=== PATIENT | male | born 1950 | race African-American/Black ===

== ENCOUNTER 2022-10-02 12:35 | Inpatient (IN) | payer MEDICARE, OTHER ==
[~2022-10-02] VITALS: Ht 188 cm; Wt 64.0 kg
[2022-10-02] MEDS ORDERED: SODIUM CHLORIDE 0.9% 1,000 ML IV ONE (13:00)
[2022-10-02 15:45] LABS: BASOPHILS % 0.8 % (0.0-2.0); EOSINOPHILS % 4.4 % (0.0-5.0); HEMATOCRIT. 42.9 % (42.0-52.0); HEMOGLOBIN. 14.1 g/dL (14.0-18.0); LYMPHOCYTES % 28.3 % (20.0-50.0); MEAN CORPUSCULAR HEMOGLOBIN 31.1 pg (28.0-32.0); MONOCYTES % 7.6 % (2.0-8.0); NEUTROPHILS % 58.9 % (40.0-76.0); RED BLOOD CELL COUNT 4.52 mill/uL (4.7-6.1); RED CELL DISTRIBUTION WIDTH 14.6 % (11.6-14.6)
[2022-10-02 15:55] LABS: CHLORIDE 103 mEq/L (98-107)
[2022-10-02 16:03] LABS: CREATINE KINASE 310 IU/L (39-308); ETHANOL BLOOD < 10 mg/dL
[2022-10-02 16:46] LABS: MEAN PLATELET VOLUME 9.1 fl (7.4-10.4); PLATELET 170 x1000/uL (130-400)
[2022-10-02 19:08] LABS: BG BASE EXCESS -2.1 mmol/L (-2.0-2.0); BG CARBOXYHEMOGLOBIN 3.4 % (0.5-1.5); BG DEOXYHEMOGLOBIN 13.2 % (0.0-5.0); BG FRACTION INSPIRED OXYGEN 21P. DI; BG HCO3 ACT 24.7 mmol/L (22.0-26.0); BG METHEMOGLOBIN 0.3 % (0.0-1.5); BG OXYGEN SATURATION 86.3 % (92.0-98.5); BG OXYHEMOGLOBIN 83.1 % (94.0-97.0); BG PCO2 50.6 mmHg (35.0-45.0); BG PH 7.306 (7.350-7.450); BG PO2 53.2 mmHg (75.0-100.0); BG SAMPLE SITE RIGHT RADIAL; BG VENT MODE ROOM AIR
[2022-10-02] MEDS ORDERED: IPRATROPIUM BROMIDE (0.02%) 0.5MG/2.5ML NEB HHN STA (20:45)
[2022-10-02] MEDS ORDERED: METHYLPREDNISOLONE SOD SUCC 125 MG/2 ML VIAL IV STA (20:45)
[2022-10-02] MEDS ORDERED: ALBUTEROL (0.083%) 2.5MG/3ML NEB HHN SCH (21:00)
[2022-10-03 04:11] LABS: CLARITY URINE CLEAR (CLEAR); COLOR URINE YELLOW (YELLOW); KETONES URINE NEGATIVE (NEGATIVE); LEUKOCYTE ESTERASE URINE NEGATIVE (NEGATIVE); NITRITE URINE NEGATIVE (NEGATIVE); OCCULT BLOOD URINE NEGATIVE (NEGATIVE); PROTEIN URINE NEGATIVE (NEGATIVE); SPECIFIC GRAVITY URINE 1.016 (1.005-1.030); UROBILINOGEN URINE 0.2 E.U./dL (0.2-1.0)
[2022-10-03 04:35] LABS: *AMPHETAMINES SCREEN URINE PRESUMTIVE POSITIVE (NEGATIVE); *BARBITURATES SCREEN URINE NEGATIVE (NEGATIVE); *BENZODIAZEPINES SCREEN URINE PRESUMTIVE POSITIVE (NEGATIVE); *COCAINE SCREEN URINE PRESUMTIVE POSITIVE (NEGATIVE); CANNABINOID URINE SCREEN NEGATIVE (NEGATIVE); METHADONE URINE SCREEN PRESUMTIVE POSITIVE (NEGATIVE); OPIATES URINE SCREEN PRESUMTIVE POSITIVE (NEGATIVE); PHENCYCLIDINE URINE SCREEN PRESUMTIVE POSITIVE (NEGATIVE)
[2022-10-03 05:40] VITALS: BP 109/64
[2022-10-03 05:45] VITALS: BP 109/64
[2022-10-03] MEDS ORDERED: IPRATROPIUM/ALBUTEROL 0.5-3(2.5)MG/3ML NEB HHN PRN (06:30)
[2022-10-03] MEDS ORDERED: ACETAMINOPHEN 325MG TABLET PO PRN (06:30)
[2022-10-03] MEDS ORDERED: NITROGLYCERIN 0.4MG TABLET SL SL PRN (06:30)
[2022-10-03] MEDS ORDERED: ALBUTEROL (0.083%) 2.5MG/3ML NEB HHN PRN (06:45)
[2022-10-03] MEDS ORDERED: IPRATROPIUM BROMIDE (0.02%) 0.5MG/2.5ML NEB HHN PRN (06:45)
[2022-10-03 08:09] VITALS: BP 138/68
[2022-10-03] MEDS ORDERED: ASPIRIN 81MG TABLET PO SCH (09:00)
[2022-10-03] MEDS ORDERED: METOPROLOL TARTRATE 50MG TABLET PO SCH (09:00)
[2022-10-03 09:22] LABS: HEMATOCRIT 35.8 % (42.0-52.0); HEMOGLOBIN 11.8 g/dL (14.0-18.0); MEAN CORPUSCULAR VOLUME 93.7 fL (80.0-94.0); PLATELET 178 x1000/uL (130-400); RED BLOOD CELL COUNT 3.82 mill/uL (4.7-6.1); RED CELL DISTRIBUTION WIDTH 14.4 % (11.6-14.6)
[2022-10-03 09:38] LABS: CHLORIDE 105 mEq/L (98-107)
[2022-10-03 09:48] LABS: HDL CHOLESTEROL 51 mg/dL (40-59); LDL CHOLESTEROL 63 mg/dL (5-100)
[2022-10-03] MEDS ORDERED: SODIUM POLYSTYRENE SULFONATE 15 G/60 ML BOT PO NR (12:00)
[2022-10-03 12:12] VITALS: BP 138/66
[2022-10-03 13:49] VITALS: BP 138/66
== END 2022-10-03 14:16 | disposition home or self-care (01) | DRG 133 ==
LOC: ER 12:35 → MICUSO 23:51 → EDBEDREQTM 10-03 00:03 → EDBEDREQ 10-03 00:03 → EDBEDREQSVC 10-03 00:03 → EDBEDREQDT 10-03 00:03 → 3WST 10-03 05:58
PROVIDERS: ADMIT Internal Medicine; ATTEND Internal Medicine
DX: J96.00 Acute respiratory failure, unspecified whether with hypoxia or hypercapnia (principal); N17.0 Acute kidney failure with tubular necrosis; F17.210 Nicotine dependence, cigarettes, uncomplicated; F19.10 Other psychoactive substance abuse, uncomplicated; Z88.8 Allergy status to other drugs, medicaments and biological substances; Z88.6 Allergy status to analgesic agent; R07.9 Chest pain, unspecified; R41.82 Altered mental status, unspecified
CPT/HCPCS: 36415; 36600; 71045; 80048; 80053; 80061; 80305; 80307; 80320; 80329; 81003; 82140; 82375; 82550; 82805; 82962; 83605; 84484; 85025; 85027; 87340; 87426; 93005; 93306; 94644; 99285; C9803; J2930; G0480

== ENCOUNTER 2023-12-02 17:06 | Inpatient (IN) | payer MEDICARE, OTHER ==
[~2023-12-02] VITALS: Ht 182.9 cm; Wt 72.6 kg
[2023-12-02 18:54] LABS: DIFFERENTIAL COMMENT 1; HEMATOCRIT. 43.2 % (42.0-52.0); HEMOGLOBIN. 14.7 g/dL (14.0-18.0); MEAN CORPUSCULAR HEMOGLOBIN 33.3 pg (28.0-32.0); MEAN CORPUSCULAR VOLUME 97.9 fL (80.0-94.0); MEAN PLATELET VOLUME 9.4 fl (7.4-10.4); PLATELET 115 x1000/uL (130-400); RED BLOOD CELL COUNT 4.41 mill/uL (4.7-6.1); RED CELL DISTRIBUTION WIDTH 14.6 % (11.6-14.6); WHITE BLOOD COUNT 8.7 x1000/uL (4.5-11.0)
[2023-12-02] MEDS: METHYLPREDNISOLONE SOD SUCC 125MG/2ML (ACT-O-VIAL) IV STA (18:58)
[2023-12-02] MEDS: AZITHROMYCIN 500MG/250ML 250 ML IV SCH (18:59)
[2023-12-02] MEDS: MAGNESIUM 2 G PREMIX 50 ML IV ONE (18:59)
[2023-12-02 19:03] LABS: BG BASE EXCESS 4.9 mmol/L (-2.0-2.0); BG CARBOXYHEMOGLOBIN 1.9 % (0.5-1.5); BG DEOXYHEMOGLOBIN 12.2 % (0.0-5.0); BG FRACTION INSPIRED OXYGEN 32; BG HCO3 ACT 31.5 mmol/L (22.0-26.0); BG METHEMOGLOBIN 0.3 % (0.0-1.5); BG OXYGEN SATURATION 87.5 % (92.0-98.5); BG OXYHEMOGLOBIN 85.6 % (94.0-97.0); BG PCO2 53.5 mmHg (35.0-45.0); BG PH 7.388 (7.350-7.450); BG PO2 55.3 mmHg (75.0-100.0); BG SAMPLE SITE RIGHT BRACHIAL; BG TOTAL HEMOGLOBIN 16.3 g/dL (12.0-18.0); BG VENT MODE NASAL CANNULA
[2023-12-02 19:08] LABS: ALANINE AMINOTRANSFERASE 20 IU/L (10-49); ALBUMIN 4.6 g/dL (3.2-4.8); ASPARTATE AMINOTRANSFERASE 40 IU/L (<34); BILIRUBIN TOTAL 0.3 mg/dL (0.1-1.0); CALCIUM 8.4 mg/dL (8.7-10.4); CARBON DIOXIDE 32 mEq/L (21-32); CHLORIDE 94 mEq/L (98-107); CREATININE 1.1 mg/dL (0.6-1.3); GLUCOSE 83 mg/dL (70-105); POTASSIUM 4.9 mEq/L (3.5-5.1); PROTEIN TOTAL 7.6 g/dL (6.0-8.3); SODIUM 129 mEq/L (136-145); TROPONIN I HIGH SENSITIVITY 13 ng/L (3.0-53); UREA NITROGEN BLOOD 15 mg/dL (9-23)
[2023-12-02 19:18] LABS: PLATELET ESTIMATE DECREASED
[2023-12-02 20:37] LABS: PARTIAL THROMBOPLASTIN TIME 22.8 sec (23.4-31.0); PROTHROMBIN TIME 11.6 sec (9.6-11.0)
[2023-12-02 20:40] LABS: TROPONIN I HIGH SENSITIVITY 15 ng/L (3.0-53)
[2023-12-02] MEDS: IPRATROPIUM BROMIDE (0.02%) 0.5MG/2.5ML NEB HHN STA (23:52)
[2023-12-02] MEDS: ALBUTEROL (0.083%) 2.5MG/3ML NEB HHN STA (23:52)
[2023-12-03] MEDS: HYDROCODONE/ACETAMINOPHEN 10/325MG TABLET PO NR (00:13)
[2023-12-03 01:50] VITALS: BP 144/89; PULSE 82; RESP 20; TEMP 98.6
[2023-12-03] MEDS ORDERED: ALBU18HF2 IH (04:03)
[2023-12-03] MEDS ORDERED: HYDR-4001 PO (04:03)
[2023-12-03] MEDS ORDERED: ACETAMINOPHEN (04:03)
[2023-12-03] MEDS ORDERED: ALPRAZOLAM (04:03)
[2023-12-03] MEDS ORDERED: P20 PO (04:03)
[2023-12-03] MEDS ORDERED: TRAZ-252 PO (04:03)
[2023-12-03] MEDS ORDERED: ALPRAZOLAM 0.5 MG TABLET PO PRN (05:00)
[2023-12-03] MEDS: METHYLPREDNISOLONE SOD SUCC 40MG/ML (ACT-O-VIAL) IV SCH (06:08)
[2023-12-03 08:00] VITALS: BP 126/77; PULSE 89; RESP 17; TEMP 98
[2023-12-03] MEDS: BUDESONIDE 0.5MG/2ML NEB HHN SCH (09:00)
[2023-12-03] MEDS: ENOXAPARIN 40MG/0.4ML SYR SUBCUT SCH (09:26)
[2023-12-03] MEDS: HYDROCODONE/ACETAMINOPHEN 5/325MG TABLET PO PRN (09:27)
[2023-12-03 12:00] VITALS: BP 122/74; PULSE 84; RESP 17; TEMP 97.6
[2023-12-03] MEDS ORDERED: METH10OR11 PO (13:11)
[2023-12-03] MEDS: METHADONE HCL 10MG TABLET PO SCH (14:38)
[2023-12-03 16:00] VITALS: BP 121/81; PULSE 92; RESP 17; TEMP 97.8
[2023-12-03] MEDS ORDERED: NALOXONE HCL 0.4MG/ML VIAL IV PRN (19:00)
[2023-12-03] MEDS: TRAZODONE HCL 50MG TABLET PO SCH (21:00)
[2023-12-04 08:00] VITALS: BP 102/78; PULSE 101; RESP 19; TEMP 97.4
[2023-12-04] MEDS: IPRATROPIUM/ALBUTEROL 0.5-3(2.5)MG/3ML NEB HHN SCH (10:14)
[2023-12-04 10:25] VITALS: PULSE 85; RESP 22
[2023-12-04 12:00] VITALS: BP 118/70; PULSE 102; RESP 18; TEMP 97.3
[2023-12-04] MEDS ORDERED: FLUT1DIS3 INH (12:15)
[2023-12-04] MEDS ORDERED: P20 MT (12:15)
[2023-12-04] MEDS ORDERED: ALBU18HF2 IH (12:15)
[2023-12-04] MEDS ORDERED: IPRA3AMP9 NEB (12:15)
[2023-12-04 12:53] VITALS: BP 101/72; PULSE 110; TEMP 97.4; O2SAT 96
== END 2023-12-04 13:40 | disposition home or self-care (01) | DRG 140 ==
LOC: ER 17:06 → 7WST 21:43 → EDBEDREQTM 22:21 → EDBEDREQ 22:21 → 7WST 12-03 04:51 → UNDODISIN 12-03 19:04
PROVIDERS: ADMIT Internal Medicine; ATTEND Internal Medicine
DX: J44.1 Chronic obstructive pulmonary disease with (acute) exacerbation (principal); J96.21 Acute and chronic respiratory failure with hypoxia; Z99.81 Dependence on supplemental oxygen; F17.210 Nicotine dependence, cigarettes, uncomplicated; Z20.822 Contact with and (suspected) exposure to COVID-19; Z88.6 Allergy status to analgesic agent
CPT/HCPCS: 36415; 36600; 71045; 80053; 82375; 82805; 83880; 84484; 85025; 87426; 93005; 94640; 99285; J0456; J1650; J2920; J2930; J3475; J7626